=== PATIENT | female | born 1965 | race Caucasian/White ===

== ENCOUNTER 2016-07-13 04:45 | Emergency (ER) | payer MEDICAID ==
[~2016-07-13] VITALS: Ht 157.5 cm; Wt 80.5 kg
[~2016-07-13 04:45] MED LIST: AMO500 PO; HYDR-3498 PO; HYDR-902 PO; IBUP200C PO; IBUP800T25 PO
[2016-07-13 04:51] VITALS: Ht 157.5 cm; Wt 80.5 kg
[2016-07-13] MEDS ORDERED: ONDANSETRON 4 MG INJ IV STA (05:20)
[2016-07-13] MEDS ORDERED: morphine 4 MG/ML VIAL IV STA (05:20)
[2016-07-13 05:52] LABS: ADD UMIC YES; URINE BILIRUBIN (Dip) NEGATIVE (NEGATIVE); URINE BLOOD (Dip) 3+ (NEGATIVE); URINE COLOR LT. YELLOW (YELLOW); URINE GLUCOSE (Dip) NEGATIVE (NEGATIVE); URINE KETONES (Dip) NEGATIVE (NEGATIVE); URINE LEUKOCYTE ESTERASE (Dip) NEGATIVE (NEGATIVE); URINE NITRITE (Dip) NEGATIVE (NEGATIVE); URINE TOTAL PROTEIN (Dip) NEGATIVE (NEGATIVE); URINE UROBILINOGEN (Dip) 0.2 E.U./dL (0.1-1.0)
[2016-07-13 05:53] LABS: BASOPHIL # 0.1 10^3/ul (0.0-0.1); BASOPHILS % 0.6 % (0.0-2.0); EOSINOPHILS # 0.1 10^3/ul (0.0-0.5); HEMATOCRIT 30.7 % (37.0-47.0); HEMOGLOBIN 9.9 g/dl (12.0-16.0); LYMPHOCYTES % 24.5 % (15.0-51.0); MEAN CORPUSCULAR HEMOGLOBIN 26.5 pg (29.0-33.0); MEAN CORPUSCULAR HGB CONC 32.2 g/dl (32.0-37.0); MEAN CORPUSCULAR VOLUME 82.1 fl (82.0-101.0); MEAN PLATELET VOLUME 7.5 fl (7.4-10.4); MONOCYTE # 0.4 10^3/ul (0.3-0.9); MONOCYTES % 4.9 % (0.0-11.0); NEUTROPHIL # 5.5 10^3/ul (1.6-7.5); PLATELET COUNT 420 10^3/UL (140-440); RED BLOOD COUNT 3.74 10^6/ul (4.20-5.40)
[2016-07-13 05:55] LABS: ALBUMIN 4.2 g/dl (3.3-4.9)
[2016-07-13 05:56] LABS: POTASSIUM 4.3 mmol/L (3.5-5.1)
[2016-07-13 05:58] LABS: BILIRUBIN,INDIRECT 0.2 mg/dl (0-1.1); BILIRUBIN,TOTAL 0.2 mg/dl (0.2-1.3); CREATININE 0.56 mg/dl (0.44-1.00); TOTAL PROTEIN 8.4 g/dl (6.1-8.1)
[2016-07-13 05:59] LABS: CALCIUM 8.8 mg/dl (8.4-10.2)
[2016-07-13 06:04] LABS: SQUAMOUS EPITHELIAL CELL,UR FEW
[2016-07-13 06:19] LABS: CONDITION 1; LH ANALYZER COMMENTS 1
[2016-07-13] MEDS ORDERED: LIDOCAINE/MYLANTA 40 ML BTL PO ONE (06:30)
--- NOTE | 2016-07-13 07:40 | RADRPT ---
PROCEDURE: Abdominal ultrasound CLINICAL INDICATION: Abdominal pain TECHNIQUE: Dutton scale, color Doppler, and spectral Doppler ultrasound images of the right upper qu adrant. COMPARISON: Abdominal ultrasound 01/06/2015 FINDINGS: Pancreas: Visualized portions appear of normal echogenicity, no focal lesions. Liver: Morphology: Normal in size and contour. Echogenicity: Increased echogenicity of the liver parenchyma suggestive of hepatic steatosis. Focal lesions: None. Main portal vein: Patent with hepatopetal flow. Biliary System: Normal appearing gallbladder wall. Gallstones are present within the gallbladder. No intra or extra-hepatic biliary dilatation. Common bile duct measures 1.8 mm in maximal dimension. Kidneys: Right 9.5 cm in length. Normal echogenicity. No hydronephrosis. No focal lesions or renal calculi. No free fluid identified. IMPRESSION: Cholelithiasis without evidence of abnormal gallbladder wall thickening to suggest cholecystitis. Normal caliber of the intrahepatic and extrahepatic biliary system. Increased echogenicity of the liver parenchyma suggestive of hepatic steatosis. RPTAT: AADD .Frandy Guardado MD, MD Date Time Electronically viewed and signed by .Frandy Guardado MD, on 07/13/2016 07:40 .B/
--- NOTE | 2016-07-13 07:46 | RADRPT ---
PROCEDURE: CHEST - 1 VIEW CLINICAL INDICATION: 51-year-old female with chest pain. TECHNIQUE: A single frontal AP view of the chest was performed portably. The images were reviewed on a PACS workstation. COMPARISON: None. FINDINGS: The cardiomediastinal silhouette has a normal appearance. There is no evidence for an infiltrate. There is no evidence for congestive heart failure. There is no evidence for pneumothorax. The osseou s structures are intact. IMPRESSION: No evidence for active cardiopulmonary disease. .Antony Fajardo MD, MD Date Time Electronically viewed and signed by .Antony Fajardo MD, on 07/13/2016 07:46 .M/
[2016-07-13 08:50] LABS: B-TYPE NATRIURETIC PEPTIDE 129 PG/ML (0-125)
[2016-07-13 08:54] LABS: TROPONIN-I < 0.012 ng/ml (0.00-0.12)
[2016-07-13] MEDS ORDERED: DICLOFENAC SODIUM 37.5 MG/ML VIAL IV STA (09:20)
[2016-07-13] MEDS ORDERED: ONDA4TAB11 PO (09:26)
[2016-07-13] MEDS ORDERED: NAPR-688 PO (09:26)
[2016-07-13] MEDS ORDERED: RANI150T9 PO (09:26)
--- NOTE | 2016-07-13 09:37 | ERD ---
ER Documentation Chief Complaint Date/Time DATE: 07/13/16 TIME: 09:32 Chief Complaint epigastric burning pain radiating to chest and back,NV, diarrhea, HPI For Frandy female with epigastric pain that radiates to her back, nausea vomiting and diarrhea for the last couple days. She denies lightheadedness weakness. Denies shortness of breath. Has had no fevers and chills. ROS All systems reviewed and are negative except as per history of present illness. Medications Home Meds Active Scripts Ondansetron (Zofran Odt) 4 Mg Tab.rapdis, 4 MG PO Q6, #10 Prov:MALGORZATA MCCURDY DO 07/13/16 Naproxen* (Naproxen*) 500 Mg Tablet, 500 MG PO BID Y for PAIN, #20 TAB Prov:MALGORZATA MCCURDY DO 07/13/16 Ranitidine Hcl* (Zantac*) 150 Mg Tablet, 150 MG PO BID Y for EPIGASTRIC PAIN, # 30 TAB Prov:MALGORZATA MCCURDY DO 07/13/16 Discontinued Reported Medications Ibuprofen* (Ibuprofen*) 200 Mg Capsule, 200 MG PO QID Y for PAIN, CAP 01/06/15 Amoxicillin* (Amoxicillin*) 500 Mg Cap, 500 MG PO Q8, CAP 01/06/15 Discontinued Scripts Hydrocodone/Acetaminophen (Enigma 10-325 Tablet) 1 Each Tablet, 1 TAB PO Q6H Y for PAIN, #7 TAB Prov:LEBRAYDONOS,APOSTOLOS A. DO 05/16/16 Ibuprofen* (Motrin*) 800 Mg Tab, 800 MG PO Q6H Y for PAIN AND OR ELEVATED TEMP, #30 TAB Prov:LEKKOSAPOSTOLOS A. DO 05/16/16 Hydrocodone Bit-Acetaminophen* (Enigma*) 5-325 Mg Tab, 1 TAB PO Q6 Y for PAIN, # 10 TAB Prov:ASHLEY GARCIA 01/06/15 Allergies Allergies: Coded Allergies: No Known Allergy (Unverified , 01/06/15) PMhx/Soc Medical and Surgical Hx: pt denies Medical Hx History of Surgery: Yes (tubal ligation) Anesthesia Reaction: No Hx Miscellaneous Medical Probl: Yes (gallstones) Hx Alcohol Use: No Hx Substance Use: No Hx Tobacco Use: No Smoking Status: Never smoker Physical Exam Vitals Vital Signs Date Time Temp Pulse Resp B/P Pulse Ox O2 Delivery O2 Flow Rate FiO2 07/13/16 09:16 98.0 78 18 162/70 100 07/13/16 07:15 98.0 80 18 160/74 100 07/13/16 04:51 97.0 78 18 167/78 100 Physical Exam Const: [] No distress Head: Atraumatic Eyes: Normal Conjunctiva ENT: Normal External Ears, Nose and Mouth. Neck: Full range of motion..~ No meningismus. Resp: Clear to auscultation bilaterally Cardio: Regular rate and rhythm, no murmurs Abd: Soft, mild epigastric tenderness without guarding or rebound, non distended. Normal bowel sounds Skin: No petechiae or rashes Back: No midline or flank tenderness Ext: No cyanosis, or edema Neur: Awake and alert oriented 3, no focal deficits Psych: Normal Mood and Affect Result Diagram: 07/13/16 0525 07/13/16 0525 Results 24 hrs Laboratory Tests Test 07/13/16 05:25 Alanine Aminotransferase (ALT/SGPT) 36IU/L Albumin 4.2g/dl Albumin/Globulin Ratio 1.00 Alkaline Phosphatase 108IU/L Anion Gap 16 Aspartate Amino Transf (AST/SGOT) 34IU/L B-Type Natriuretic Peptide 129PG/ML Basophils # 0.110^3/ul Basophils % 0.6% Blood Morphology Comment Blood Urea Nitrogen 12mg/dl Calcium Level 8.8mg/dl Carbon Dioxide Level 22mmol/L Chloride Level 107mmol/L Creatinine 0.56mg/dl Direct Bilirubin 0.00mg/dl Eosinophils # 0.110^3/ul Eosinophils % 1.0% Globulin 4.20g/dl Glucose Level 112mg/dl Hematocrit 30.7% Hemoglobin 9.9g/dl Indirect Bilirubin 0.2mg/dl Lipase 106U/L Lymphocytes # 2.010^3/ul Lymphocytes % 24.5% Mean Corpuscular Hemoglobin 26.5pg Mean Corpuscular Hemoglobin Concent 32.2g/dl Mean Corpuscular Volume 82.1fl Mean Platelet Volume 7.5fl Monocytes # 0.410^3/ul Monocytes % 4.9% Neutrophils # 5.510^3/ul Neutrophils % 69.0% Nucleated Red Blood Cells # 0.010^3/ul Nucleated Red Blood Cells % 0.0/100WBC Platelet Count 80788^3/UL Potassium Level 4.3mmol/L Red Blood Count 3.7410^6/ul Red Cell Distribution Width 17.0% Sodium Level 141mmol/L Total Bilirubin 0.2mg/dl Total Protein 8.4g/dl Troponin I < 0.012ng/ml Urine Bilirubin NEGATIVE Urine Clarity CLEAR Urine Color LT. YELLOW Urine Glucose NEGATIVE% Urine Hemoglobin 3+ Urine Ketones NEGATIVE Urine Leukocyte Esterase NEGATIVE Urine Microscopic RBC 5-10/HPF Urine Microscopic WBC 0-2/HPF Urine Nitrite NEGATIVE Urine Specific [place] 1.010 Urine Squamous Epithelial Cells FEW Urine Total Protein NEGATIVE Urine Urobilinogen 0.2 E.U./dL Urine pH 6.0 White Blood Count 8.010^3/ul Current Medications Medications (Trade) Dose Ordered Sig/Larissa Route PRN Reason Start Time Stop Time Status Last Admin Dose Admin Morphine Sulfate (morphine) 4 mg ONCE STAT IV 07/13/16 05:20 07/13/16 05:22 DC 07/13/16 05:32 Ondansetron HCl (Zofran Inj) 4 mg ONCE STAT IV 07/13/16 05:20 07/13/16 05:22 DC 07/13/16 05:31 Miscellaneous Medication (Gi Cocktail (2)) 40 ml ONCE ONCE PO 07/13/16 06:30 07/13/16 06:31 DC 07/13/16 07:13 Diclofenac Sodium (Dyloject) 37.5 mg ONCE STAT IV 07/13/16 09:20 07/13/16 09:25 DC 07/13/16 09:27 Procedures/MDM 51-year-old female symptoms of burning chest pain suspicious for GERD. Also with right upper quadrant pain which seems to be a separate issue. She does have a history of gallstones. No evidence of acute acute cholecystitis on ultrasound or laboratories. Cardiac workup was also performed because of nausea vomiting epigastric pain and some lower chest pain. EKG is nonischemic and troponin is negative for symptoms that started yesterday. She was given a GI cocktail as well as aspirin. GI cocktail resolved the chest pain completely. She still had some right upper quadrant pain was given morphine, liter of IV fluid, and I'll eject which virtually resolved that pain as well she had been given Zofran which completely resolved her nausea. I have low suspicion for acute coronary syndrome, dissection, esophageal rupture. I'm discharging with Zantac as well as him strict instructions to get a referral from her primary care doctor for general surgeon as well as an echocardiogram. Patient is happy with this plan is feeling much better. EKG interpretation: Normal sinus rhythm, normal axis, no ST-T wave changes concerning for acute ischemia, QTC of 460, normal EKG Cardio monitor interpretation: Normal sinus rhythm without arrhythmia Chest x-ray interpretation: Acute process no pneumothorax no infiltrates no pulmonary edema no fractures Right upper quadrant ultrasound interpretation: Gallstones in gallbladder with no evidence of cholecystitis, no presses: Fluid, no ductal that lesion, no wall thickening Departure Diagnosis: Primary Impression: Biliary colic Additional Impressions: Chest pain GERD (gastroesophageal reflux disease) Anemia Condition: Stable Patient Instructions: Chest Pain, Uncertain Cause, Gerd (Adult), Biliary Colic With Gallstone (Confirmed) Additional Instructions: Llame al doctor LIZZ y cora bucky YONAS PARA DENTRO DE 2-3 [place]. Consigue un referral para un GERERAL SURGEON and an ECHOCARIOGRAMA. Dgale a la secretaria que nosotros le instruimos hacer esta yonas.Avise o llame si luna condicin se empeora antes de la yonas. Regresa aqui si peor o no mejor. MALGORZATA MCCURDY DO Jul 13, 2016 09:37
[2016-07-13 09:39] VITALS: BP 118/76; PULSE 78; RESP 16; TEMP 98.1
[2016-07-13 09:51] LABS: INR 1.02; PARTIAL THROMBOPLASTIN TIME 29.6 Sec (25.0-35.0); PROTIME 13.4 Sec (12.2-14.2)
== END 2016-07-13 09:39 | disposition home or self-care (01) ==
LOC: E/R 04:45
DX: K80.50 Calculus of bile duct without cholangitis or cholecystitis without obstruction (principal); R07.9 Chest pain, unspecified; D64.9 Anemia, unspecified; K21.9 Gastro-esophageal reflux disease without esophagitis; R11.2 Nausea with vomiting, unspecified
CPT/HCPCS: 36415; 71010; 76705; 80053; 81001; 83690; 83880; 84484; 85025; 85610; 85730; 93005; 96374; 96375; J2270; J2405; Z7502; Z7610; 81003

== ENCOUNTER 2017-11-08 08:20 | Emergency (ER) | END 2017-11-08 10:01 | disposition home or self-care (01) ==

== ENCOUNTER 2017-11-16 11:02 | Emergency (ER) | END 2017-11-16 14:01 | disposition home or self-care (01) ==